=== PATIENT | male | born 1950 | race Caucasian/White ===

== ENCOUNTER 2020-07-27 10:10 | Emergency (ER) | payer MEDICARE, OTHER ==
[~2020-07-27] VITALS: Ht 182.9 cm; Wt 99.0 kg
[2020-07-27 11:10] VITALS: BP 139/76
--- NOTE | 2020-07-27 11:11 | PHYS DOC ---
Past History Past Medical History: Asthma, GERD, High Cholesterol, Hypertension, Hypothyroid, Other Additional Past Medical Histor: seasonal allergies Past Surgical History: Appendectomy, Tonsillectomy Additional Past Surgical Histo: bunionectomy, vein stripping. Additional Smoking Information: occasional cigar Alcohol Use: Occasionally General Adult EDM: Chief Complaint: LACERATION/AVULSION HPI: HPI: 69-year-old male presents with left hand laceration. The patient was cutting lid off of a centimeters coffee package when the knife slipped and he lacerated the webbing of his left hand between the thumb and second digit. Patient realized it was deep enough to probably need sutures so he came in. He immediately washed it at home, covered it up and came in to the ER. He had a tetanus shot within the last 5 years. He has no other complaints at this time. Review of Systems: Review of Systems: Constitutional: Denies fever or chills Eyes: Denies change in visual acuity HENT: Denies nasal congestion or sore throat Respiratory: Denies cough or shortness of breath Cardiovascular: Denies chest pain or edema GI: Denies abdominal pain, nausea, vomiting, bloody stools or diarrhea : Denies dysuria Musculoskeletal: Denies back pain or joint pain Integument: Laceration left hand Neurologic: Denies headache, focal weakness or sensory changes Endocrine: Denies polyuria or polydipsia Lymphatic: Denies swollen glands Psychiatric: Denies depression or anxiety Heart Score: Risk Factors: Risk Factors: DM, Current or recent (<one month) smoker, HTN, HLP, family histo ry of CAD, obesity. Risk Scores: Score 0 - 3: 2.5% MACE over next 6 weeks - Discharge Home Score 4 - 6: 20.3% MACE over next 6 weeks - Admit for Clinical Observation Score 7 - 10: 72.7% MACE over next 6 weeks - Early Invasive Strategies Allergies: Allergies: Allergies Coded Allergies Type Severity Reaction Last Updated Verified NSAIDS (Non-Steroidal Anti-Inflamma Allergy Unknown 07/27/20 Yes Sulfa (Sulfonamide Antibiotics) Allergy Unknown 07/27/20 Yes aspirin Allergy Unknown 07/27/20 Yes Physical Exam: PE: Constitutional: Well developed, well nourished, no acute distress, non-toxic appearance. [] HENT: Normocephalic, atraumatic, bilateral external ears normal, oropharynx moist, no oral exudates, nose normal. [] Eyes: PERRLA, EOMI, conjunctiva normal, no discharge. [] Neck: Normal range of motion, no tenderness, supple, no stridor. [] Cardiovascular: Heart rate regular rhythm, no murmur [] Lungs & Thorax: Bilateral breath sounds clear to auscultation [] Abdomen: Bowel sounds normal, soft, no tenderness, no masses, no pulsatile masses. [] Skin: 1.5 cm linear laceration of the webspace between the first and second digit of the left hand. Range of motion of all fingers intact. No neurological deficits. [] Back: No tenderness, no CVA tenderness. [] Extremities: No tenderness, no cyanosis, no clubbing, ROM intact, no edema. [] Neurologic: Alert and oriented X 3, normal motor function, normal sensory function, no focal deficits noted. [] Psychologic: Affect normal, judgement normal, mood normal. [] Current Patient Data: Vital Signs: Vital Signs Date Time Temp Pulse Resp B/P (MAP) Pulse Ox O2 Delivery O2 Flow Rate FiO2 07/27/20 10:25 98.2 66 18 160/73 (102) 99 EKG: EKG: [] Radiology/Procedures: Radiology/Procedures: [] Course & Med Decision Making: Course & Med Decision Making Pertinent Labs and Imaging studies reviewed. (See chart for details) I repaired the patient's wound with sutures. See note below for more details. There are no complications. His tetanus is already up-to-date. He is stable for discharge at this time. [] Dragon Disclaimer: Dragphilip Disclaimer: This electronic medical record was generated, in whole or in part, using a voice recognition dictation system. Laceration Repair Lac Repair Indication: [] 1.5 cm laceration of the left hand Procedure: The patient gave me verbal permission for suture repair of his left hand laceration. The wound was thoroughly irrigated with normal saline. I anesthetized the wound with 1% lidocaine without epinephrine. Once good anesthesia was achieved, I placed three 4-0 Ethilon sutures in interrupted fashion. There was good skin approximation. Bleeding was controlled. A clean dry dressing was applied over the wound. Total repaired wound length: 1.5 cm Other Items: None The patient tolerated the procedure well. Complications: None. Departure Departure: Impression: Primary Impression: Laceration of left hand Qualified Codes: S61.412A - Laceration without foreign body of left hand, initial encounter Disposition: 01 DC HOME SELF CARE/HOMELESS Condition: STABLE Referrals: PCP,BRIANA (PCP) Patient Instructions: Laceration Care, Adult, [id number] CODIE BROWN DO Jul 27, 2020 11:11
== END 2020-07-27 11:15 | disposition home or self-care (01) ==
LOC: ER 10:10
DX: S61.412A Laceration without foreign body of left hand, initial encounter (principal); J45.909 Unspecified asthma, uncomplicated; K21.9 Gastro-esophageal reflux disease without esophagitis; E78.00 Pure hypercholesterolemia, unspecified; I10 Essential (primary) hypertension; E03.9 Hypothyroidism, unspecified; F17.210 Nicotine dependence, cigarettes, uncomplicated; Z88.2 Allergy status to sulfonamides; Z88.6 Allergy status to analgesic agent; Z88.8 Allergy status to other drugs, medicaments and biological substances; W26.0XXA Contact with knife, initial encounter; Y93.89 Activity, other specified; Y92.89 Other specified places as the place of occurrence of the external cause; Y99.8 Other external cause status
CPT/HCPCS: 12001; 99282